=== PATIENT | female | born 1955 | race Caucasian/White ===

== ENCOUNTER 2020-08-07 12:07 | Inpatient (IN) ==
[2020-08-07] MEDS ORDERED: Bisacodyl 10 MG RECTAL SUPPOSITORY RC PRN ×2 (16:02→16:30)
[2020-08-07] MEDS ORDERED: Furosemide 20 MG TABLET PO PRN (16:07)
[2020-08-07] MEDS ORDERED: Saline Nasal Spray 44 ML BOTTLE NS PRN (16:30)
[2020-08-07] MEDS ORDERED: Ondansetron ODT 4 MG TAB.RAPDIS SL PRN (16:30)
[2020-08-07] MEDS ORDERED: D5% in Water 1,000 ML IVC PRN (16:42)
[2020-08-07] MEDS ORDERED: Dextrose Gel 15 GM/37.5 ML TUBE PO PRN ×2 (16:42)
[2020-08-07] MEDS ORDERED: *HR* Dextrose 50 % in Water (Vial) 50 ML VIAL IVP PRN (16:42)
[2020-08-07] MEDS: Insulin LISPRO 300 UNITS/3 ML VIAL SQ SCH ×2 (18:01→20:36)
[2020-08-07] MEDS: Ipratropium 1 PUFF INHALER IH SCH ×2 (19:34→23:02)
[2020-08-07] MEDS: Benzonatate 100 MG CAPSULE PO PRN (19:59)
[2020-08-07] MEDS ORDERED: Ipratropium 1 PUFF INHALER IH SCH (20:00)
[2020-08-07] MEDS: Lactobacillus 1 EACH CAP.SPRINK PO SCH (20:30)
[2020-08-07] MEDS: Sennosides/Docusate Sodium TABLET PO SCH (20:31)
[2020-08-07] MEDS: GuaiFENesin/Dextromethorphan TABLET PO SCH (20:31)
[2020-08-07] MEDS: Artificial Tears SOLN 15 ML BOTTLE BOTH EYES SCH (20:39)
[2020-08-07] MEDS: Fluticasone Propionate Nasal 50 MCG/SPRAY BOTTLE NS SCH (20:42)
[2020-08-07] MEDS ORDERED: Artificial Tears SOLN 15 ML BOTTLE BOTH EYES SCH (21:00)
[2020-08-07] MEDS ORDERED: Lactobacillus 1 EACH CAP.SPRINK PO SCH (21:00)
[2020-08-07] MEDS: Menthol 9.1 MG LOZENGE PO PRN (23:54)
[2020-08-08] MEDS: Ipratropium 1 PUFF INHALER IH SCH ×3 (03:22→11:44)
[2020-08-08] MEDS: *HR* Enoxaparin 40 MG/0.4 ML SYRINGE SQ SCH (05:20)
[2020-08-08 05:22] LABS: Basophils % 0.2 %; Eosinophils # 0.4 K/mcL (0.0-0.6); Eosinophils % 3.8 %; Hematocrit 34.4 % (35.3-44.9); Hemoglobin 10.9 g/dL (11.5-15.4); Immature Granulocytes % 2.3 % (0-4); Lymphocytes # 1.8 K/mcL (0.6-4.6); Lymphocytes % 19.2 %; Mean Corpuscular HGB Conc 31.7 g/dL (31.6-35.5); Mean Corpuscular Hemoglobin 29.7 pg (28.0-33.3); Mean Corpuscular Volume 93.7 fL (83.0-100.0); Mean Platelet Volume 9.8 fL (9.4-12.4); Monocytes # 0.5 K/mcL (0.0-1.3); Monocytes % 5.3 %; Neutrophils # 6.5 K/mcL (1.6-8.9); Platelet Count 180 K/mcL (140-400); Red Blood Count 3.67 M/mcL (3.82-4.97); Red Cell Distribution Width 15.8 % (11.5-14.5); Segmented Neutrophils % 69.2 %; White Blood Count 9.3 K/mcL (4.3-11.1)
[2020-08-08 05:40] LABS: Alanine Aminotransferase 22 Units/L (7-52); Albumin 3.1 g/dL (3.5-5.7); Albumin/Globulin Ratio 1.3 (1.1-2.2); Alkaline Phosphatase 50 Units/L (34-104); Aspartate Amino Transferase 14 Units/L (13-39); BUN/Creatinine Ratio 38 (6-26); Bilirubin,Total 0.7 mg/dL (0.3-1.0); Blood Urea Nitrogen 23 mg/dL (8-23); Calcium 8.5 mg/dL (8.6-10.3); Carbon Dioxide 32 mEq/L (23-29); Chloride 100 mEq/L (98-107); Globulin 2.3 g/dL (2.4-3.5); Glucose 95 mg/dL (70-105); Magnesium 2.2 mg/dL (1.6-2.6); Osmolality,Calculated 289 (280-300); Potassium 3.7 mEq/L (3.5-5.1); Sodium 138 mEq/L (136-145); Total Protein 5.4 g/dL (6.4-8.9); eGFR For African Americans > 60 (> 60); eGFR For Non-African Americans > 60 (> 60)
[2020-08-08] MEDS: Insulin LISPRO 300 UNITS/3 ML VIAL SQ SCH ×4 (07:57→22:06)
[2020-08-08] MEDS: Sennosides/Docusate Sodium TABLET PO SCH ×2 (08:23→22:05)
[2020-08-08] MEDS: Aspirin Enteric Coated 81 MG Tablet PO SCH (08:23)
[2020-08-08] MEDS: Lactobacillus 1 EACH CAP.SPRINK PO SCH ×2 (08:24→22:05)
[2020-08-08] MEDS: Benzonatate 100 MG CAPSULE PO PRN ×2 (08:24→22:06)
[2020-08-08] MEDS: Cholecalciferol (D-3) 1,000 UNIT (25MCG) TABLET PO SCH (08:24)
[2020-08-08] MEDS: GuaiFENesin/Dextromethorphan TABLET PO SCH ×2 (08:24→22:05)
[2020-08-08] MEDS: dexAMETHasone 4 MG TABLET PO SCH (08:24)
[2020-08-08] MEDS: Fluticasone Propionate Nasal 50 MCG/SPRAY BOTTLE NS SCH ×2 (08:27→22:07)
[2020-08-08] MEDS ORDERED: dexAMETHasone 4 MG TABLET PO SCH (09:00)
[2020-08-08] MEDS: Doxycycline 100 MG CAPSULE PO SCH ×2 (12:12→22:05)
[2020-08-08] MEDS: Furosemide 20 MG TABLET PO SCH ×2 (12:12→17:03)
[2020-08-08] MEDS: Artificial Tears SOLN 15 ML BOTTLE BOTH EYES SCH (22:07)
[2020-08-08] MEDS: Menthol 9.1 MG LOZENGE PO PRN (22:30)
[2020-08-09] MEDS: *HR* Enoxaparin 40 MG/0.4 ML SYRINGE SQ SCH (04:28)
[2020-08-09] MEDS: Menthol 9.1 MG LOZENGE PO PRN ×2 (04:29→23:52)
[2020-08-09 07:07] LABS: Basophils % 0.2 %; Eosinophils # 0.3 K/mcL (0.0-0.6); Eosinophils % 2.9 %; Hematocrit 35.7 % (35.3-44.9); Hemoglobin 11.3 g/dL (11.5-15.4); Immature Granulocytes % 2.3 % (0-4); Lymphocytes # 1.8 K/mcL (0.6-4.6); Lymphocytes % 19.1 %; Mean Corpuscular HGB Conc 31.7 g/dL (31.6-35.5); Mean Corpuscular Hemoglobin 30.1 pg (28.0-33.3); Mean Corpuscular Volume 94.9 fL (83.0-100.0); Mean Platelet Volume 10.3 fL (9.4-12.4); Monocytes # 0.5 K/mcL (0.0-1.3); Monocytes % 5.5 %; Neutrophils # 6.7 K/mcL (1.6-8.9); Platelet Count 168 K/mcL (140-400); Red Blood Count 3.76 M/mcL (3.82-4.97); White Blood Count 9.6 K/mcL (4.3-11.1)
[2020-08-09 07:21] LABS: BUN/Creatinine Ratio 36 (6-26); Blood Urea Nitrogen 16 mg/dL (8-23); Calcium 8.4 mg/dL (8.6-10.3); Carbon Dioxide 26 mEq/L (23-29); Chloride 105 mEq/L (98-107); Glucose 98 mg/dL (70-105); Osmolality,Calculated 289 (280-300); Potassium 3.7 mEq/L (3.5-5.1); Sodium 139 mEq/L (136-145); eGFR For African Americans > 60 (> 60); eGFR For Non-African Americans > 60 (> 60)
[2020-08-09] MEDS: Insulin LISPRO 300 UNITS/3 ML VIAL SQ SCH ×4 (07:50→20:00)
[2020-08-09] MEDS: Cholecalciferol (D-3) 1,000 UNIT (25MCG) TABLET PO SCH (09:35)
[2020-08-09] MEDS: levoFLOXacin 750 MG TABLET PO SCH (09:35)
[2020-08-09] MEDS: dexAMETHasone 4 MG TABLET PO SCH (09:36)
[2020-08-09] MEDS: Benzonatate 100 MG CAPSULE PO PRN ×2 (09:36→22:43)
[2020-08-09] MEDS: Aspirin Enteric Coated 81 MG Tablet PO SCH (09:37)
[2020-08-09] MEDS: GuaiFENesin/Dextromethorphan TABLET PO SCH ×2 (09:37→20:00)
[2020-08-09] MEDS: Fluticasone Propionate Nasal 50 MCG/SPRAY BOTTLE NS SCH ×2 (09:37→20:00)
[2020-08-09] MEDS: Lactobacillus 1 EACH CAP.SPRINK PO SCH ×2 (09:37→20:00)
[2020-08-09] MEDS: Sennosides/Docusate Sodium TABLET PO SCH ×2 (09:37→20:00)
[2020-08-09] MEDS: Furosemide 20 MG TABLET PO SCH ×2 (09:37→17:28)
[2020-08-09] MEDS: Acetylcysteine 10% 2 ML INHSOL IH SCH ×4 (13:46→21:57)
[2020-08-09] MEDS: Ipratropium 1 PUFF INHALER IH SCH (13:51)
[2020-08-09] MEDS: predniSONE 20 MG TABLET PO SCH (17:28)
[2020-08-09] MEDS: Ipratropium/Albuterol Neb 3 ML IH SCH ×2 (17:48→21:57)
[2020-08-09] MEDS: Artificial Tears SOLN 15 ML BOTTLE BOTH EYES SCH (20:00)
[2020-08-09] MEDS: Ciprofloxacin/Dex *EAR* Susp 7.5 ML BOTTLE LEFT EAR SCH (23:18)
[2020-08-10] MEDS: Ipratropium/Albuterol Neb 3 ML IH SCH ×4 (03:13→22:35)
[2020-08-10] MEDS: Acetylcysteine 10% 2 ML INHSOL IH SCH ×4 (03:14→22:35)
[2020-08-10] MEDS: *HR* Enoxaparin 40 MG/0.4 ML SYRINGE SQ SCH (05:00)
[2020-08-10] MEDS: levoFLOXacin 750 MG TABLET PO SCH (08:25)
[2020-08-10] MEDS: Furosemide 20 MG TABLET PO SCH ×2 (08:25→17:00)
[2020-08-10] MEDS: Cholecalciferol (D-3) 1,000 UNIT (25MCG) TABLET PO SCH (08:25)
[2020-08-10] MEDS: GuaiFENesin/Dextromethorphan TABLET PO SCH ×2 (08:25→21:15)
[2020-08-10] MEDS: Aspirin Enteric Coated 81 MG Tablet PO SCH (08:25)
[2020-08-10] MEDS: predniSONE 20 MG TABLET PO SCH ×2 (08:25→17:00)
[2020-08-10] MEDS: Fluticasone Propionate Nasal 50 MCG/SPRAY BOTTLE NS SCH ×2 (08:26→21:29)
[2020-08-10] MEDS: Insulin LISPRO 300 UNITS/3 ML VIAL SQ SCH ×4 (08:26→21:21)
[2020-08-10] MEDS: Sennosides/Docusate Sodium TABLET PO SCH ×2 (08:26→21:15)
[2020-08-10] MEDS: Lactobacillus 1 EACH CAP.SPRINK PO SCH ×2 (08:26→21:16)
[2020-08-10] MEDS: Ciprofloxacin/Dex *EAR* Susp 7.5 ML BOTTLE LEFT EAR SCH ×2 (09:25→21:23)
[2020-08-10 12:58] LABS: Adenovirus Not Detected (Not Detect); Bordetella Pertussis Not Detected (Not Detect); Chlamydophila pneumoniae Not Detected (Not Detect); Coronavirus 229E Not Detected (Not Detect); Coronavirus HKU1 Not Detected (Not Detect); Coronavirus NL63 Not Detected (Not Detect); Coronavirus OC43 Not Detected (Not Detect); Human Metapneumovirus Not Detected (Not Detect); Human Rhinovirus/Enterovirus Not Detected (Not Detect); Influenza A Subtype 2009 H1 Not Detected (Not Detect); Influenza B Not Detected (Not Detect); Mycoplasma pneumoniae Not Detected (Not Detect); Parainfluenza Virus 1 Not Detected (Not Detect); Parainfluenza Virus 2 Not Detected (Not Detect); Parainfluenza Virus 3 Not Detected (Not Detect); Parainfluenza Virus 4 Not Detected (Not Detect); Respiratory Syncytial Virus Not Detected (Not Detect); SARS-CoV-2 Not Detected (Not Detect)
[2020-08-10] MEDS: Benzonatate 100 MG CAPSULE PO PRN (21:17)
[2020-08-10] MEDS: Artificial Tears SOLN 15 ML BOTTLE BOTH EYES SCH (21:19)
[2020-08-10] MEDS: Menthol 9.1 MG LOZENGE PO PRN (21:29)
[2020-08-11] MEDS: Ipratropium/Albuterol Neb 3 ML IH SCH ×4 (04:20→21:57)
[2020-08-11] MEDS: Acetylcysteine 10% 2 ML INHSOL IH SCH ×4 (04:20→21:57)
[2020-08-11] MEDS: *HR* Enoxaparin 40 MG/0.4 ML SYRINGE SQ SCH (05:21)
[2020-08-11] MEDS: Menthol 9.1 MG LOZENGE PO PRN (05:22)
[2020-08-11] MEDS: Benzonatate 100 MG CAPSULE PO PRN (05:24)
[2020-08-11] MEDS ORDERED: Mag Hydrox/Al Hydrox/Simeth 30 ML UDC PO PRN (07:54)
[2020-08-11] MEDS ORDERED: Famotidine 20 MG TABLET PO STA (07:54)
[2020-08-11 08:15] LABS: Hematocrit 34.7 % (35.3-44.9); Hemoglobin 11.1 g/dL (11.5-15.4); Mean Corpuscular Hemoglobin 30.2 pg (28.0-33.3); Mean Corpuscular Volume 94.6 fL (83.0-100.0); Platelet Count 187 K/mcL (140-400); Red Blood Count 3.67 M/mcL (3.82-4.97); Red Cell Distribution Width 16.7 % (11.5-14.5); White Blood Count 12.1 K/mcL (4.3-11.1)
[2020-08-11] MEDS: Sennosides/Docusate Sodium TABLET PO SCH ×2 (08:45→21:30)
[2020-08-11] MEDS: levoFLOXacin 750 MG TABLET PO SCH (08:45)
[2020-08-11] MEDS: Furosemide 20 MG TABLET PO SCH ×2 (08:45→16:40)
[2020-08-11] MEDS: predniSONE 20 MG TABLET PO SCH ×2 (08:45→16:40)
[2020-08-11] MEDS: Aspirin Enteric Coated 81 MG Tablet PO SCH (08:45)
[2020-08-11] MEDS: Lactobacillus 1 EACH CAP.SPRINK PO SCH ×2 (08:45→21:29)
[2020-08-11] MEDS: Cholecalciferol (D-3) 1,000 UNIT (25MCG) TABLET PO SCH (08:45)
[2020-08-11] MEDS: GuaiFENesin/Dextromethorphan TABLET PO SCH ×2 (08:45→21:29)
[2020-08-11 08:51] LABS: Alanine Aminotransferase 22 Units/L (7-52); Albumin 3.4 g/dL (3.5-5.7); Albumin/Globulin Ratio 1.4 (1.1-2.2); Alkaline Phosphatase 55 Units/L (34-104); Aspartate Amino Transferase 11 Units/L (13-39); BUN/Creatinine Ratio 38 (6-26); Bilirubin,Total 0.5 mg/dL (0.3-1.0); Blood Urea Nitrogen 22 mg/dL (8-23); Calcium 9.1 mg/dL (8.6-10.3); Carbon Dioxide 31 mEq/L (23-29); Chloride 98 mEq/L (98-107); Globulin 2.4 g/dL (2.4-3.5); Glucose 147 mg/dL (70-105); Osmolality,Calculated 288 (280-300); Sodium 136 mEq/L (136-145); Total Protein 5.8 g/dL (6.4-8.9); eGFR For African Americans > 60 (> 60); eGFR For Non-African Americans > 60 (> 60)
[2020-08-11] MEDS: Ciprofloxacin/Dex *EAR* Susp 7.5 ML BOTTLE LEFT EAR SCH ×2 (08:51→21:39)
[2020-08-11] MEDS: Fluticasone Propionate Nasal 50 MCG/SPRAY BOTTLE NS SCH ×2 (08:52→21:42)
[2020-08-11] MEDS: Insulin LISPRO 300 UNITS/3 ML VIAL SQ SCH ×4 (08:55→21:44)
[2020-08-11] MEDS: Artificial Tears SOLN 15 ML BOTTLE BOTH EYES SCH (21:38)
[2020-08-12] MEDS: Menthol 9.1 MG LOZENGE PO PRN ×3 (01:28→21:39)
[2020-08-12] MEDS: Ipratropium/Albuterol Neb 3 ML IH SCH ×4 (04:01→22:22)
[2020-08-12] MEDS: *HR* Enoxaparin 40 MG/0.4 ML SYRINGE SQ SCH (05:42)
[2020-08-12] MEDS: Lactobacillus 1 EACH CAP.SPRINK PO SCH ×2 (07:56→21:39)
[2020-08-12] MEDS: Cholecalciferol (D-3) 1,000 UNIT (25MCG) TABLET PO SCH (07:56)
[2020-08-12] MEDS: Aspirin Enteric Coated 81 MG Tablet PO SCH (07:56)
[2020-08-12] MEDS: Furosemide 20 MG TABLET PO SCH ×2 (07:56→17:11)
[2020-08-12] MEDS: GuaiFENesin/Dextromethorphan TABLET PO SCH ×2 (07:56→21:39)
[2020-08-12] MEDS: Sennosides/Docusate Sodium TABLET PO SCH ×2 (07:56→21:39)
[2020-08-12] MEDS: levoFLOXacin 750 MG TABLET PO SCH (07:56)
[2020-08-12] MEDS: predniSONE 20 MG TABLET PO SCH ×2 (07:56→17:11)
[2020-08-12] MEDS: Fluticasone Propionate Nasal 50 MCG/SPRAY BOTTLE NS SCH ×2 (07:57→21:40)
[2020-08-12] MEDS: Insulin LISPRO 300 UNITS/3 ML VIAL SQ SCH ×4 (07:58→21:37)
[2020-08-12] MEDS: Ciprofloxacin/Dex *EAR* Susp 7.5 ML BOTTLE LEFT EAR SCH ×2 (07:58→21:41)
[2020-08-12] MEDS: Acetylcysteine 10% 2 ML INHSOL IH SCH ×2 (11:06→22:22)
[2020-08-12] MEDS: Artificial Tears SOLN 15 ML BOTTLE BOTH EYES SCH (21:39)
[2020-08-12] MEDS: Benzonatate 100 MG CAPSULE PO PRN (22:47)
[2020-08-13] MEDS: Ipratropium/Albuterol Neb 3 ML IH SCH ×4 (04:14→22:08)
[2020-08-13] MEDS: *HR* Enoxaparin 40 MG/0.4 ML SYRINGE SQ SCH (04:15)
[2020-08-13 06:11] LABS: Basophils % 0.2 %; Hemoglobin 11.4 g/dL (11.5-15.4); Immature Granulocytes % 4.2 % (0-4); Lymphocytes # 1.3 K/mcL (0.6-4.6); Mean Corpuscular HGB Conc 31.7 g/dL (31.6-35.5); Mean Corpuscular Hemoglobin 30.2 pg (28.0-33.3); Mean Corpuscular Volume 95.2 fL (83.0-100.0); Mean Platelet Volume 10.2 fL (9.4-12.4); Monocytes # 0.6 K/mcL (0.0-1.3); Monocytes % 6.1 %; Neutrophils # 7.2 K/mcL (1.6-8.9); Nucleated Red Blood Cells 0.4 /100 WBC (0); Platelet Count 204 K/mcL (140-400); Red Blood Count 3.78 M/mcL (3.82-4.97); Red Cell Distribution Width 16.7 % (11.5-14.5); Segmented Neutrophils % 75.5 %; White Blood Count 9.5 K/mcL (4.3-11.1)
[2020-08-13 06:29] LABS: BUN/Creatinine Ratio 42 (6-26); Blood Urea Nitrogen 25 mg/dL (8-23); Calcium 9.1 mg/dL (8.6-10.3); Carbon Dioxide 33 mEq/L (23-29); Chloride 98 mEq/L (98-107); Glucose 173 mg/dL (70-105); Osmolality,Calculated 295 (280-300); Potassium 4.5 mEq/L (3.5-5.1); Sodium 138 mEq/L (136-145); eGFR For African Americans > 60 (> 60); eGFR For Non-African Americans > 60 (> 60)
[2020-08-13] MEDS: Acetylcysteine 10% 2 ML INHSOL IH SCH (07:31)
[2020-08-13] MEDS: Aspirin Enteric Coated 81 MG Tablet PO SCH (08:16)
[2020-08-13] MEDS: GuaiFENesin/Dextromethorphan TABLET PO SCH ×2 (08:16→20:26)
[2020-08-13] MEDS: Insulin LISPRO 300 UNITS/3 ML VIAL SQ SCH ×4 (08:16→20:24)
[2020-08-13] MEDS: Ciprofloxacin/Dex *EAR* Susp 7.5 ML BOTTLE LEFT EAR SCH ×2 (08:16→20:28)
[2020-08-13] MEDS: Sennosides/Docusate Sodium TABLET PO SCH ×2 (08:17→20:26)
[2020-08-13] MEDS: predniSONE 20 MG TABLET PO SCH (08:17)
[2020-08-13] MEDS: Furosemide 20 MG TABLET PO SCH ×2 (08:17→16:59)
[2020-08-13] MEDS: Fluticasone Propionate Nasal 50 MCG/SPRAY BOTTLE NS SCH ×2 (08:17→20:26)
[2020-08-13] MEDS: Cholecalciferol (D-3) 1,000 UNIT (25MCG) TABLET PO SCH (08:17)
[2020-08-13] MEDS: levoFLOXacin 750 MG TABLET PO SCH (08:17)
[2020-08-13] MEDS: Lactobacillus 1 EACH CAP.SPRINK PO SCH ×2 (08:17→20:25)
[2020-08-13] MEDS: Menthol 9.1 MG LOZENGE PO PRN ×2 (08:44→20:26)
[2020-08-13] MEDS: Benzonatate 100 MG CAPSULE PO PRN ×2 (08:44→20:26)
[2020-08-13] MEDS ORDERED: Acetylcysteine 10% 2 ML INHSOL IH PRN (09:24)
[2020-08-13] MEDS: Artificial Tears SOLN 15 ML BOTTLE BOTH EYES SCH (20:27)
[2020-08-14] MEDS: Ipratropium/Albuterol Neb 3 ML IH SCH ×4 (03:52→19:38)
[2020-08-14] MEDS: *HR* Enoxaparin 40 MG/0.4 ML SYRINGE SQ SCH (04:00)
[2020-08-14] MEDS: Insulin LISPRO 300 UNITS/3 ML VIAL SQ SCH ×4 (08:43→21:27)
[2020-08-14] MEDS: Ciprofloxacin/Dex *EAR* Susp 7.5 ML BOTTLE LEFT EAR SCH ×2 (08:46→21:26)
[2020-08-14] MEDS: Sennosides/Docusate Sodium TABLET PO SCH ×2 (08:47→21:19)
[2020-08-14] MEDS: Lactobacillus 1 EACH CAP.SPRINK PO SCH ×2 (08:47→21:19)
[2020-08-14] MEDS: Cholecalciferol (D-3) 1,000 UNIT (25MCG) TABLET PO SCH (08:47)
[2020-08-14] MEDS: Aspirin Enteric Coated 81 MG Tablet PO SCH (08:47)
[2020-08-14] MEDS: GuaiFENesin/Dextromethorphan TABLET PO SCH ×2 (08:47→21:19)
[2020-08-14] MEDS: predniSONE 20 MG TABLET PO SCH (08:47)
[2020-08-14] MEDS: Fluticasone Propionate Nasal 50 MCG/SPRAY BOTTLE NS SCH ×2 (08:47→21:20)
[2020-08-14] MEDS: Furosemide 20 MG TABLET PO SCH ×2 (08:47→16:50)
[2020-08-14] MEDS: levoFLOXacin 750 MG TABLET PO SCH (08:47)
[2020-08-14] MEDS: Nystatin SUSP 5 ML UD.LIQ PO SCH ×2 (16:50→21:19)
[2020-08-14] MEDS: Benzonatate 100 MG CAPSULE PO PRN (21:19)
[2020-08-14] MEDS: Artificial Tears SOLN 15 ML BOTTLE BOTH EYES SCH (21:20)
[2020-08-15] MEDS: Ipratropium/Albuterol Neb 3 ML IH SCH ×4 (04:03→20:34)
[2020-08-15] MEDS: *HR* Enoxaparin 40 MG/0.4 ML SYRINGE SQ SCH (04:06)
[2020-08-15] MEDS: Nystatin SUSP 5 ML UD.LIQ PO SCH ×4 (08:22→21:25)
[2020-08-15] MEDS: Insulin LISPRO 300 UNITS/3 ML VIAL SQ SCH ×4 (08:22→21:25)
[2020-08-15] MEDS: predniSONE 20 MG TABLET PO SCH (08:23)
[2020-08-15] MEDS: Lactobacillus 1 EACH CAP.SPRINK PO SCH ×2 (08:23→21:25)
[2020-08-15] MEDS: GuaiFENesin/Dextromethorphan TABLET PO SCH ×2 (08:23→21:25)
[2020-08-15] MEDS: Furosemide 20 MG TABLET PO SCH ×2 (08:23→17:06)
[2020-08-15] MEDS: Sennosides/Docusate Sodium TABLET PO SCH ×2 (08:23→21:25)
[2020-08-15] MEDS: Aspirin Enteric Coated 81 MG Tablet PO SCH (08:23)
[2020-08-15] MEDS: Cholecalciferol (D-3) 1,000 UNIT (25MCG) TABLET PO SCH (08:23)
[2020-08-15] MEDS: levoFLOXacin 750 MG TABLET PO SCH (08:23)
[2020-08-15] MEDS: Fluticasone Propionate Nasal 50 MCG/SPRAY BOTTLE NS SCH ×2 (14:04→21:26)
[2020-08-15] MEDS: Artificial Tears SOLN 15 ML BOTTLE BOTH EYES SCH (21:25)
[2020-08-15] MEDS: polyethylene glycoL 3350 17 GM POWD.PACK PO PRN (21:25)
[2020-08-15] MEDS: Benzonatate 100 MG CAPSULE PO PRN (21:26)
[2020-08-16] MEDS: Ipratropium/Albuterol Neb 3 ML IH SCH ×4 (04:27→21:27)
[2020-08-16] MEDS: *HR* Enoxaparin 40 MG/0.4 ML SYRINGE SQ SCH (05:53)
[2020-08-16] MEDS: Lactobacillus 1 EACH CAP.SPRINK PO SCH ×2 (08:22→19:46)
[2020-08-16] MEDS: Sennosides/Docusate Sodium TABLET PO SCH ×2 (08:22→19:46)
[2020-08-16] MEDS: Cholecalciferol (D-3) 1,000 UNIT (25MCG) TABLET PO SCH (08:22)
[2020-08-16] MEDS: predniSONE 20 MG TABLET PO SCH (08:22)
[2020-08-16] MEDS: levoFLOXacin 750 MG TABLET PO SCH (08:22)
[2020-08-16] MEDS: Aspirin Enteric Coated 81 MG Tablet PO SCH (08:22)
[2020-08-16] MEDS: Furosemide 20 MG TABLET PO SCH ×2 (08:22→17:56)
[2020-08-16] MEDS: Nystatin SUSP 5 ML UD.LIQ PO SCH ×4 (08:22→19:47)
[2020-08-16] MEDS: GuaiFENesin/Dextromethorphan TABLET PO SCH ×2 (08:22→19:46)
[2020-08-16] MEDS: Insulin LISPRO 300 UNITS/3 ML VIAL SQ SCH ×4 (08:25→20:13)
[2020-08-16] MEDS: Fluticasone Propionate Nasal 50 MCG/SPRAY BOTTLE NS SCH ×2 (08:25→20:11)
[2020-08-16] MEDS: polyethylene glycoL 3350 17 GM POWD.PACK PO PRN (14:02)
[2020-08-16] MEDS: Artificial Tears SOLN 15 ML BOTTLE BOTH EYES SCH (20:12)
[2020-08-16] MEDS: Benzonatate 100 MG CAPSULE PO PRN (21:19)
[2020-08-17] MEDS: Ipratropium/Albuterol Neb 3 ML IH SCH ×4 (03:53→21:55)
[2020-08-17] MEDS: *HR* Enoxaparin 40 MG/0.4 ML SYRINGE SQ SCH (06:17)
[2020-08-17] MEDS: Cholecalciferol (D-3) 1,000 UNIT (25MCG) TABLET PO SCH (08:02)
[2020-08-17] MEDS: Lactobacillus 1 EACH CAP.SPRINK PO SCH ×2 (08:02→21:31)
[2020-08-17] MEDS: Aspirin Enteric Coated 81 MG Tablet PO SCH (08:02)
[2020-08-17] MEDS: GuaiFENesin/Dextromethorphan TABLET PO SCH ×2 (08:02→21:31)
[2020-08-17] MEDS: predniSONE 20 MG TABLET PO SCH (08:02)
[2020-08-17] MEDS: Nystatin SUSP 5 ML UD.LIQ PO SCH ×4 (08:02→21:31)
[2020-08-17] MEDS: Insulin LISPRO 300 UNITS/3 ML VIAL SQ SCH ×4 (08:02→21:35)
[2020-08-17] MEDS: Sennosides/Docusate Sodium TABLET PO SCH ×2 (08:03→21:31)
[2020-08-17] MEDS: Furosemide 20 MG TABLET PO SCH ×2 (08:03→18:05)
[2020-08-17] MEDS: Fluticasone Propionate Nasal 50 MCG/SPRAY BOTTLE NS SCH ×2 (08:03→21:36)
[2020-08-17] MEDS ORDERED: MOM Conc 10 ML UD.LIQ PO PRN (16:34)
[2020-08-17] MEDS: Benzonatate 100 MG CAPSULE PO PRN (21:31)
[2020-08-17] MEDS: Artificial Tears SOLN 15 ML BOTTLE BOTH EYES SCH (21:36)
[2020-08-18] MEDS: Ipratropium/Albuterol Neb 3 ML IH SCH ×4 (04:07→21:55)
[2020-08-18] MEDS: *HR* Enoxaparin 40 MG/0.4 ML SYRINGE SQ SCH (05:28)
[2020-08-18 06:26] LABS: Basophils % 0.3 %; Eosinophils # 0.1 K/mcL (0.0-0.6); Eosinophils % 1.3 %; Hematocrit 33.2 % (35.3-44.9); Hemoglobin 10.6 g/dL (11.5-15.4); Immature Granulocytes % 5.6 % (0-4); Lymphocytes # 2.1 K/mcL (0.6-4.6); Lymphocytes % 25.9 %; Mean Corpuscular HGB Conc 31.9 g/dL (31.6-35.5); Mean Corpuscular Hemoglobin 30.1 pg (28.0-33.3); Mean Corpuscular Volume 94.3 fL (83.0-100.0); Mean Platelet Volume 9.7 fL (9.4-12.4); Monocytes # 0.6 K/mcL (0.0-1.3); Monocytes % 7.7 %; Neutrophils # 4.7 K/mcL (1.6-8.9); Platelet Count 256 K/mcL (140-400); Red Blood Count 3.52 M/mcL (3.82-4.97); Red Cell Distribution Width 17.3 % (11.5-14.5); Segmented Neutrophils % 59.2 %; White Blood Count 7.9 K/mcL (4.3-11.1)
[2020-08-18 06:48] LABS: BUN/Creatinine Ratio 46 (6-26); Blood Urea Nitrogen 26 mg/dL (8-23); Calcium 8.3 mg/dL (8.6-10.3); Carbon Dioxide 33 mEq/L (23-29); Chloride 99 mEq/L (98-107); Glucose 90 mg/dL (70-105); Osmolality,Calculated 292 (280-300); Potassium 3.1 mEq/L (3.5-5.1); Sodium 139 mEq/L (136-145); eGFR For African Americans > 60 (> 60); eGFR For Non-African Americans > 60 (> 60)
[2020-08-18] MEDS: Insulin LISPRO 300 UNITS/3 ML VIAL SQ SCH ×4 (07:45→21:20)
[2020-08-18] MEDS: Nystatin SUSP 5 ML UD.LIQ PO SCH ×4 (08:38→21:19)
[2020-08-18] MEDS: Fluticasone Propionate Nasal 50 MCG/SPRAY BOTTLE NS SCH ×2 (08:38→21:18)
[2020-08-18] MEDS: GuaiFENesin/Dextromethorphan TABLET PO SCH ×2 (08:38→21:15)
[2020-08-18] MEDS: Aspirin Enteric Coated 81 MG Tablet PO SCH (08:39)
[2020-08-18] MEDS: Lactobacillus 1 EACH CAP.SPRINK PO SCH ×2 (08:39→21:14)
[2020-08-18] MEDS: Sennosides/Docusate Sodium TABLET PO SCH ×2 (08:39→21:17)
[2020-08-18] MEDS: Cholecalciferol (D-3) 1,000 UNIT (25MCG) TABLET PO SCH (08:39)
[2020-08-18] MEDS: predniSONE 20 MG TABLET PO SCH (08:39)
[2020-08-18] MEDS: Furosemide 20 MG TABLET PO SCH ×2 (08:39→17:00)
[2020-08-18] MEDS: Menthol 9.1 MG LOZENGE PO PRN (12:16)
[2020-08-18] MEDS: Artificial Tears SOLN 15 ML BOTTLE BOTH EYES SCH (21:18)
[2020-08-19] MEDS: Ipratropium/Albuterol Neb 3 ML IH SCH ×4 (03:40→21:51)
[2020-08-19] MEDS: *HR* Enoxaparin 40 MG/0.4 ML SYRINGE SQ SCH (05:19)
[2020-08-19 05:24] LABS: Basophils % 0.3 %; Eosinophils # 0.1 K/mcL (0.0-0.6); Eosinophils % 0.8 %; Hematocrit 35.1 % (35.3-44.9); Hemoglobin 11.2 g/dL (11.5-15.4); Immature Granulocytes % 5.9 % (0-4); Lymphocytes # 2.2 K/mcL (0.6-4.6); Lymphocytes % 24.1 %; Mean Corpuscular HGB Conc 31.9 g/dL (31.6-35.5); Mean Corpuscular Hemoglobin 30.4 pg (28.0-33.3); Mean Corpuscular Volume 95.4 fL (83.0-100.0); Mean Platelet Volume 9.7 fL (9.4-12.4); Monocytes # 0.7 K/mcL (0.0-1.3); Monocytes % 7.5 %; Neutrophils # 5.5 K/mcL (1.6-8.9); Nucleated Red Blood Cells 0.2 /100 WBC (0); Platelet Count 274 K/mcL (140-400); Red Blood Count 3.68 M/mcL (3.82-4.97); Red Cell Distribution Width 17.2 % (11.5-14.5); Segmented Neutrophils % 61.4 %
[2020-08-19] MEDS: Menthol 9.1 MG LOZENGE PO PRN (05:24)
[2020-08-19] MEDS: Benzonatate 100 MG CAPSULE PO PRN ×2 (05:25→22:30)
[2020-08-19 05:37] LABS: BUN/Creatinine Ratio 50 (6-26); Blood Urea Nitrogen 27 mg/dL (8-23); Calcium 8.8 mg/dL (8.6-10.3); Carbon Dioxide 32 mEq/L (23-29); Chloride 99 mEq/L (98-107); Glucose 111 mg/dL (70-105); Osmolality,Calculated 294 (280-300); Potassium 3.9 mEq/L (3.5-5.1); Sodium 139 mEq/L (136-145); eGFR For African Americans > 60 (> 60); eGFR For Non-African Americans > 60 (> 60)
[2020-08-19] MEDS: Furosemide 20 MG TABLET PO SCH ×2 (09:13→16:50)
[2020-08-19] MEDS: Nystatin SUSP 5 ML UD.LIQ PO SCH ×3 (09:14→20:46)
[2020-08-19] MEDS: Lactobacillus 1 EACH CAP.SPRINK PO SCH ×2 (09:14→20:45)
[2020-08-19] MEDS: predniSONE 20 MG TABLET PO SCH (09:14)
[2020-08-19] MEDS: GuaiFENesin/Dextromethorphan TABLET PO SCH ×2 (09:14→20:45)
[2020-08-19] MEDS: Aspirin Enteric Coated 81 MG Tablet PO SCH (09:14)
[2020-08-19] MEDS: Cholecalciferol (D-3) 1,000 UNIT (25MCG) TABLET PO SCH (09:14)
[2020-08-19] MEDS: Insulin LISPRO 300 UNITS/3 ML VIAL SQ SCH ×4 (09:14→20:45)
[2020-08-19] MEDS: Sennosides/Docusate Sodium TABLET PO SCH ×2 (09:14→20:46)
[2020-08-19] MEDS: Fluticasone Propionate Nasal 50 MCG/SPRAY BOTTLE NS SCH ×2 (09:21→20:46)
[2020-08-19] MEDS: Artificial Tears SOLN 15 ML BOTTLE BOTH EYES SCH (20:44)
[2020-08-20] MEDS: Ipratropium/Albuterol Neb 3 ML IH SCH ×4 (03:39→21:34)
[2020-08-20] MEDS: *HR* Enoxaparin 40 MG/0.4 ML SYRINGE SQ SCH (04:21)
[2020-08-20 05:58] LABS: Basophils # 0.1 K/mcL (0.0-0.2); Basophils % 0.6 %; Eosinophils # 0.1 K/mcL (0.0-0.6); Eosinophils % 1.1 %; Hematocrit 34.6 % (35.3-44.9); Lymphocytes # 2.4 K/mcL (0.6-4.6); Lymphocytes % 29.1 %; Mean Corpuscular HGB Conc 31.8 g/dL (31.6-35.5); Mean Corpuscular Hemoglobin 30.4 pg (28.0-33.3); Mean Corpuscular Volume 95.6 fL (83.0-100.0); Mean Platelet Volume 9.8 fL (9.4-12.4); Monocytes # 0.7 K/mcL (0.0-1.3); Monocytes % 8.4 %; Neutrophils # 4.4 K/mcL (1.6-8.9); Nucleated Red Blood Cells 0.2 /100 WBC (0); Platelet Count 265 K/mcL (140-400); Red Blood Count 3.62 M/mcL (3.82-4.97); Red Cell Distribution Width 17.3 % (11.5-14.5); Segmented Neutrophils % 54.8 %; White Blood Count 8.1 K/mcL (4.3-11.1)
[2020-08-20 06:18] LABS: BUN/Creatinine Ratio 39 (6-26); Blood Urea Nitrogen 22 mg/dL (8-23); Calcium 8.8 mg/dL (8.6-10.3); Carbon Dioxide 33 mEq/L (23-29); Chloride 100 mEq/L (98-107); Glucose 96 mg/dL (70-105); Osmolality,Calculated 293 (280-300); Potassium 4.1 mEq/L (3.5-5.1); Sodium 140 mEq/L (136-145); eGFR For African Americans > 60 (> 60); eGFR For Non-African Americans > 60 (> 60)
[2020-08-20 06:44] LABS: Platelet Estimate Normal (Normal)
[2020-08-20] MEDS: Insulin LISPRO 300 UNITS/3 ML VIAL SQ SCH ×4 (08:31→20:13)
[2020-08-20] MEDS: Cholecalciferol (D-3) 1,000 UNIT (25MCG) TABLET PO SCH (08:34)
[2020-08-20] MEDS: predniSONE 20 MG TABLET PO SCH (08:34)
[2020-08-20] MEDS: Furosemide 20 MG TABLET PO SCH ×2 (08:34→17:06)
[2020-08-20] MEDS: Sennosides/Docusate Sodium TABLET PO SCH ×2 (08:34→20:29)
[2020-08-20] MEDS: Lactobacillus 1 EACH CAP.SPRINK PO SCH ×2 (08:34→20:29)
[2020-08-20] MEDS: Nystatin SUSP 5 ML UD.LIQ PO SCH ×4 (08:34→20:28)
[2020-08-20] MEDS: GuaiFENesin/Dextromethorphan TABLET PO SCH ×2 (08:34→20:29)
[2020-08-20] MEDS: Aspirin Enteric Coated 81 MG Tablet PO SCH (08:34)
[2020-08-20] MEDS: Fluticasone Propionate Nasal 50 MCG/SPRAY BOTTLE NS SCH ×2 (08:35→20:29)
[2020-08-20] MEDS: Menthol 9.1 MG LOZENGE PO PRN ×2 (09:32→20:29)
[2020-08-20] MEDS: Artificial Tears SOLN 15 ML BOTTLE BOTH EYES SCH (20:29)
[2020-08-21] MEDS: Ipratropium/Albuterol Neb 3 ML IH SCH ×4 (03:40→19:41)
[2020-08-21] MEDS: Acetaminophen 325 MG TABLET PO PRN (03:57)
[2020-08-21] MEDS: *HR* Enoxaparin 40 MG/0.4 ML SYRINGE SQ SCH (03:57)
[2020-08-21] MEDS: Sennosides/Docusate Sodium TABLET PO SCH ×2 (08:06→19:59)
[2020-08-21] MEDS: Aspirin Enteric Coated 81 MG Tablet PO SCH (08:06)
[2020-08-21] MEDS: GuaiFENesin/Dextromethorphan TABLET PO SCH ×2 (08:06→19:58)
[2020-08-21] MEDS: Lactobacillus 1 EACH CAP.SPRINK PO SCH ×2 (08:06→19:58)
[2020-08-21] MEDS: Cholecalciferol (D-3) 1,000 UNIT (25MCG) TABLET PO SCH (08:06)
[2020-08-21] MEDS: Insulin LISPRO 300 UNITS/3 ML VIAL SQ SCH ×4 (08:07→20:05)
[2020-08-21] MEDS: Nystatin SUSP 5 ML UD.LIQ PO SCH ×3 (08:07→17:34)
[2020-08-21] MEDS: predniSONE 20 MG TABLET PO SCH (08:07)
[2020-08-21] MEDS: Furosemide 20 MG TABLET PO SCH ×2 (08:07→17:34)
[2020-08-21] MEDS: Fluticasone Propionate Nasal 50 MCG/SPRAY BOTTLE NS SCH ×2 (11:34→19:58)
[2020-08-21] MEDS: Benzonatate 100 MG CAPSULE PO PRN ×2 (12:13→18:47)
[2020-08-21] MEDS: Artificial Tears SOLN 15 ML BOTTLE BOTH EYES SCH (19:58)
[2020-08-21] MEDS: Menthol 9.1 MG LOZENGE PO PRN (19:59)
[2020-08-22] MEDS: Ipratropium/Albuterol Neb 3 ML IH SCH ×4 (04:07→19:50)
[2020-08-22] MEDS: Acetaminophen 325 MG TABLET PO PRN (04:31)
[2020-08-22] MEDS: *HR* Enoxaparin 40 MG/0.4 ML SYRINGE SQ SCH (04:31)
[2020-08-22 08:02] LABS: Basophils # 0.1 K/mcL (0.0-0.2); Basophils % 0.5 %; Eosinophils # 0.1 K/mcL (0.0-0.6); Eosinophils % 0.9 %; Immature Granulocytes % 4.5 % (0-4); Lymphocytes # 3.8 K/mcL (0.6-4.6); Lymphocytes % 28.7 %; Mean Corpuscular HGB Conc 31.6 g/dL (31.6-35.5); Mean Corpuscular Hemoglobin 29.9 pg (28.0-33.3); Mean Corpuscular Volume 94.8 fL (83.0-100.0); Mean Platelet Volume 9.6 fL (9.4-12.4); Monocytes # 0.8 K/mcL (0.0-1.3); Monocytes % 6.1 %; Neutrophils # 7.8 K/mcL (1.6-8.9); Nucleated Red Blood Cells 0.2 /100 WBC (0); Platelet Count 345 K/mcL (140-400); Red Blood Count 4.01 M/mcL (3.82-4.97); Red Cell Distribution Width 17.6 % (11.5-14.5); Segmented Neutrophils % 59.3 %; White Blood Count 13.2 K/mcL (4.3-11.1)
[2020-08-22] MEDS: Insulin LISPRO 300 UNITS/3 ML VIAL SQ SCH ×4 (08:48→21:20)
[2020-08-22] MEDS: Benzonatate 100 MG CAPSULE PO PRN ×2 (08:49→18:28)
[2020-08-22] MEDS: Lactobacillus 1 EACH CAP.SPRINK PO SCH ×2 (08:49→21:19)
[2020-08-22] MEDS: Sennosides/Docusate Sodium TABLET PO SCH ×2 (08:49→21:21)
[2020-08-22] MEDS: Aspirin Enteric Coated 81 MG Tablet PO SCH (08:49)
[2020-08-22] MEDS: Cholecalciferol (D-3) 1,000 UNIT (25MCG) TABLET PO SCH (08:49)
[2020-08-22] MEDS: predniSONE 20 MG TABLET PO SCH (08:49)
[2020-08-22] MEDS: Fluticasone Propionate Nasal 50 MCG/SPRAY BOTTLE NS SCH ×2 (08:49→21:20)
[2020-08-22] MEDS: Furosemide 20 MG TABLET PO SCH ×2 (08:49→16:33)
[2020-08-22] MEDS: GuaiFENesin/Dextromethorphan TABLET PO SCH ×2 (08:49→21:20)
[2020-08-22 10:58] LABS: Alanine Aminotransferase 27 Units/L (7-52); Albumin 3.7 g/dL (3.5-5.7); Albumin/Globulin Ratio 1.9 (1.1-2.2); Alkaline Phosphatase 45 Units/L (34-104); Aspartate Amino Transferase 16 Units/L (13-39); BUN/Creatinine Ratio 41 (6-26); Bilirubin,Total 0.7 mg/dL (0.3-1.0); Blood Urea Nitrogen 27 mg/dL (8-23); Carbon Dioxide 28 mEq/L (23-29); Chloride 101 mEq/L (98-107); Glucose 106 mg/dL (70-105); Magnesium 2.1 mg/dL (1.6-2.6); Osmolality,Calculated 294 (280-300); Sodium 139 mEq/L (136-145); Total Protein 5.7 g/dL (6.4-8.9); eGFR For African Americans > 60 (> 60); eGFR For Non-African Americans > 60 (> 60)
[2020-08-22] MEDS: Artificial Tears SOLN 15 ML BOTTLE BOTH EYES SCH (21:19)
[2020-08-23] MEDS: Ipratropium/Albuterol Neb 3 ML IH SCH ×4 (03:53→19:35)
[2020-08-23] MEDS: *HR* Enoxaparin 40 MG/0.4 ML SYRINGE SQ SCH (05:10)
[2020-08-23] MEDS: Benzonatate 100 MG CAPSULE PO PRN ×2 (05:10→21:03)
[2020-08-23] MEDS: Insulin LISPRO 300 UNITS/3 ML VIAL SQ SCH ×4 (08:11→21:02)
[2020-08-23] MEDS: Aspirin Enteric Coated 81 MG Tablet PO SCH (08:11)
[2020-08-23] MEDS: Cholecalciferol (D-3) 1,000 UNIT (25MCG) TABLET PO SCH (08:11)
[2020-08-23] MEDS: Furosemide 20 MG TABLET PO SCH ×2 (08:11→17:20)
[2020-08-23] MEDS: Lactobacillus 1 EACH CAP.SPRINK PO SCH ×2 (08:11→21:01)
[2020-08-23] MEDS: Sennosides/Docusate Sodium TABLET PO SCH ×2 (08:11→21:02)
[2020-08-23] MEDS: predniSONE 20 MG TABLET PO SCH (08:11)
[2020-08-23] MEDS: GuaiFENesin/Dextromethorphan TABLET PO SCH ×2 (08:11→21:02)
[2020-08-23] MEDS: Fluticasone Propionate Nasal 50 MCG/SPRAY BOTTLE NS SCH ×2 (08:12→21:02)
[2020-08-23] MEDS: Artificial Tears SOLN 15 ML BOTTLE BOTH EYES SCH (21:01)
[2020-08-23] MEDS: Menthol 9.1 MG LOZENGE PO PRN (21:03)
[2020-08-24] MEDS: Ipratropium/Albuterol Neb 3 ML IH SCH ×4 (05:35→22:05)
[2020-08-24] MEDS: *HR* Enoxaparin 40 MG/0.4 ML SYRINGE SQ SCH (05:35)
[2020-08-24 05:52] LABS: Hematocrit 34.4 % (35.3-44.9); Hemoglobin 10.9 g/dL (11.5-15.4); Mean Corpuscular HGB Conc 31.7 g/dL (31.6-35.5); Mean Corpuscular Hemoglobin 30.4 pg (28.0-33.3); Mean Corpuscular Volume 96.1 fL (83.0-100.0); Mean Platelet Volume 9.7 fL (9.4-12.4); Platelet Count 275 K/mcL (140-400); Red Blood Count 3.58 M/mcL (3.82-4.97); White Blood Count 10.5 K/mcL (4.3-11.1)
[2020-08-24 06:09] LABS: Alanine Aminotransferase 25 Units/L (7-52); Albumin 3.4 g/dL (3.5-5.7); Albumin/Globulin Ratio 1.9 (1.1-2.2); Alkaline Phosphatase 46 Units/L (34-104); Aspartate Amino Transferase 13 Units/L (13-39); BUN/Creatinine Ratio 38 (6-26); Bilirubin,Total 0.7 mg/dL (0.3-1.0); Blood Urea Nitrogen 24 mg/dL (8-23); Carbon Dioxide 32 mEq/L (23-29); Chloride 103 mEq/L (98-107); Globulin 1.8 g/dL (2.4-3.5); Glucose 98 mg/dL (70-105); Magnesium 2.2 mg/dL (1.6-2.6); Osmolality,Calculated 298 (280-300); Potassium 4.1 mEq/L (3.5-5.1); Sodium 142 mEq/L (136-145); Total Protein 5.2 g/dL (6.4-8.9); eGFR For African Americans > 60 (> 60); eGFR For Non-African Americans > 60 (> 60)
[2020-08-24] MEDS: Insulin LISPRO 300 UNITS/3 ML VIAL SQ SCH ×4 (08:11→21:46)
[2020-08-24] MEDS: Cholecalciferol (D-3) 1,000 UNIT (25MCG) TABLET PO SCH (08:19)
[2020-08-24] MEDS: GuaiFENesin/Dextromethorphan TABLET PO SCH ×2 (08:19→21:45)
[2020-08-24] MEDS: Sennosides/Docusate Sodium TABLET PO SCH ×2 (08:19→21:46)
[2020-08-24] MEDS: Aspirin Enteric Coated 81 MG Tablet PO SCH (08:19)
[2020-08-24] MEDS: Lactobacillus 1 EACH CAP.SPRINK PO SCH ×2 (08:19→21:46)
[2020-08-24] MEDS: predniSONE 20 MG TABLET PO SCH (08:19)
[2020-08-24] MEDS: Furosemide 20 MG TABLET PO SCH ×2 (08:19→17:43)
[2020-08-24] MEDS: Fluticasone Propionate Nasal 50 MCG/SPRAY BOTTLE NS SCH ×2 (08:20→21:47)
[2020-08-24] MEDS: Benzonatate 100 MG CAPSULE PO PRN ×2 (08:25→21:46)
[2020-08-24] MEDS: Menthol 9.1 MG LOZENGE PO PRN ×2 (08:27→21:47)
[2020-08-24] MEDS: Nystatin SUSP 5 ML UD.LIQ PO SCH (21:46)
[2020-08-24] MEDS: Artificial Tears SOLN 15 ML BOTTLE BOTH EYES SCH (21:47)
[2020-08-25] MEDS: Ipratropium/Albuterol Neb 3 ML IH SCH ×4 (03:55→22:12)
[2020-08-25] MEDS: *HR* Enoxaparin 40 MG/0.4 ML SYRINGE SQ SCH (06:17)
[2020-08-25] MEDS: Nystatin SUSP 5 ML UD.LIQ PO SCH ×4 (08:19→19:26)
[2020-08-25] MEDS: Aspirin Enteric Coated 81 MG Tablet PO SCH (08:19)
[2020-08-25] MEDS: Lactobacillus 1 EACH CAP.SPRINK PO SCH ×2 (08:20→19:26)
[2020-08-25] MEDS: GuaiFENesin/Dextromethorphan TABLET PO SCH ×2 (08:20→19:26)
[2020-08-25] MEDS: Insulin LISPRO 300 UNITS/3 ML VIAL SQ SCH ×4 (08:20→19:33)
[2020-08-25] MEDS: Fluticasone Propionate Nasal 50 MCG/SPRAY BOTTLE NS SCH ×2 (08:20→19:27)
[2020-08-25] MEDS: Cholecalciferol (D-3) 1,000 UNIT (25MCG) TABLET PO SCH (08:20)
[2020-08-25] MEDS: Sennosides/Docusate Sodium TABLET PO SCH ×2 (08:20→19:26)
[2020-08-25] MEDS: predniSONE 20 MG TABLET PO SCH (08:20)
[2020-08-25] MEDS: Furosemide 20 MG TABLET PO SCH ×2 (08:20→16:32)
[2020-08-25] MEDS ORDERED: Fluconazole 150 MG TABLET PO ONE (10:37)
[2020-08-25] MEDS ORDERED: Ipratropium/Albuterol Neb 3 ML IH SCH ×2 (18:00→20:00)
[2020-08-25] MEDS: Benzonatate 100 MG CAPSULE PO PRN (19:26)
[2020-08-25] MEDS: Artificial Tears SOLN 15 ML BOTTLE BOTH EYES SCH (19:27)
[2020-08-26] MEDS: Ipratropium/Albuterol Neb 3 ML IH SCH ×4 (04:06→22:20)
[2020-08-26] MEDS: *HR* Enoxaparin 40 MG/0.4 ML SYRINGE SQ SCH (05:30)
[2020-08-26] MEDS: Insulin LISPRO 300 UNITS/3 ML VIAL SQ SCH ×4 (07:36→20:00)
[2020-08-26] MEDS: Fluticasone Propionate Nasal 50 MCG/SPRAY BOTTLE NS SCH ×2 (08:35→20:00)
[2020-08-26] MEDS: Cholecalciferol (D-3) 1,000 UNIT (25MCG) TABLET PO SCH (08:36)
[2020-08-26] MEDS: Lactobacillus 1 EACH CAP.SPRINK PO SCH ×2 (08:36→19:59)
[2020-08-26] MEDS: predniSONE 20 MG TABLET PO SCH (08:36)
[2020-08-26] MEDS: Aspirin Enteric Coated 81 MG Tablet PO SCH (08:36)
[2020-08-26] MEDS: GuaiFENesin/Dextromethorphan TABLET PO SCH ×2 (08:36→19:58)
[2020-08-26] MEDS: Furosemide 20 MG TABLET PO SCH (08:36)
[2020-08-26] MEDS: Nystatin SUSP 5 ML UD.LIQ PO SCH ×4 (08:36→19:58)
[2020-08-26] MEDS: Sennosides/Docusate Sodium TABLET PO SCH ×2 (08:36→19:58)
[2020-08-26] MEDS: Benzonatate 100 MG CAPSULE PO PRN ×2 (08:39→19:57)
[2020-08-26] MEDS: Menthol 9.1 MG LOZENGE PO PRN (19:59)
[2020-08-26] MEDS: Artificial Tears SOLN 15 ML BOTTLE BOTH EYES SCH (20:00)
[2020-08-27] MEDS: *HR* Enoxaparin 40 MG/0.4 ML SYRINGE SQ SCH (04:00)
[2020-08-27] MEDS: Ipratropium/Albuterol Neb 3 ML IH SCH ×4 (04:30→22:07)
[2020-08-27] MEDS: Cholecalciferol (D-3) 1,000 UNIT (25MCG) TABLET PO SCH (08:33)
[2020-08-27] MEDS: Lactobacillus 1 EACH CAP.SPRINK PO SCH ×2 (08:33→21:42)
[2020-08-27] MEDS: Sennosides/Docusate Sodium TABLET PO SCH ×2 (08:33→21:41)
[2020-08-27] MEDS: Nystatin SUSP 5 ML UD.LIQ PO SCH ×4 (08:33→21:41)
[2020-08-27] MEDS: Aspirin Enteric Coated 81 MG Tablet PO SCH (08:33)
[2020-08-27] MEDS: GuaiFENesin/Dextromethorphan TABLET PO SCH ×2 (08:33→21:42)
[2020-08-27] MEDS: Insulin LISPRO 300 UNITS/3 ML VIAL SQ SCH ×4 (08:33→21:42)
[2020-08-27] MEDS: Fluticasone Propionate Nasal 50 MCG/SPRAY BOTTLE NS SCH ×2 (08:35→21:41)
[2020-08-27] MEDS: predniSONE 20 MG TABLET PO SCH (08:35)
[2020-08-27] MEDS: Benzonatate 100 MG CAPSULE PO PRN ×2 (09:42→17:24)
[2020-08-27] MEDS: Artificial Tears SOLN 15 ML BOTTLE BOTH EYES SCH (21:41)
[2020-08-28] MEDS: Ipratropium/Albuterol Neb 3 ML IH SCH ×4 (03:54→20:48)
[2020-08-28] MEDS: *HR* Enoxaparin 40 MG/0.4 ML SYRINGE SQ SCH (04:05)
[2020-08-28] MEDS: Lactobacillus 1 EACH CAP.SPRINK PO SCH ×2 (08:18→20:17)
[2020-08-28] MEDS: Aspirin Enteric Coated 81 MG Tablet PO SCH (08:18)
[2020-08-28] MEDS: Insulin LISPRO 300 UNITS/3 ML VIAL SQ SCH ×4 (08:18→20:21)
[2020-08-28] MEDS: Cholecalciferol (D-3) 1,000 UNIT (25MCG) TABLET PO SCH (08:19)
[2020-08-28] MEDS: predniSONE 20 MG TABLET PO SCH (08:19)
[2020-08-28] MEDS: GuaiFENesin/Dextromethorphan TABLET PO SCH ×2 (08:19→20:17)
[2020-08-28] MEDS: Sennosides/Docusate Sodium TABLET PO SCH ×2 (08:19→20:18)
[2020-08-28] MEDS: Fluticasone Propionate Nasal 50 MCG/SPRAY BOTTLE NS SCH ×2 (08:19→20:18)
[2020-08-28] MEDS: Nystatin SUSP 5 ML UD.LIQ PO SCH ×4 (08:19→20:18)
[2020-08-28] MEDS: Artificial Tears SOLN 15 ML BOTTLE BOTH EYES SCH (20:19)
[2020-08-28] MEDS: Menthol 9.1 MG LOZENGE PO PRN (20:21)
[2020-08-28] MEDS: Benzonatate 100 MG CAPSULE PO PRN (22:53)
[2020-08-29] MEDS: Ipratropium/Albuterol Neb 3 ML IH SCH ×4 (04:28→20:26)
[2020-08-29] MEDS: *HR* Enoxaparin 40 MG/0.4 ML SYRINGE SQ SCH (06:52)
[2020-08-29] MEDS: Insulin LISPRO 300 UNITS/3 ML VIAL SQ SCH ×4 (08:09→21:03)
[2020-08-29] MEDS: Aspirin Enteric Coated 81 MG Tablet PO SCH (08:16)
[2020-08-29] MEDS: predniSONE 20 MG TABLET PO SCH (08:16)
[2020-08-29] MEDS: Fluticasone Propionate Nasal 50 MCG/SPRAY BOTTLE NS SCH ×2 (08:17→20:54)
[2020-08-29] MEDS: Cholecalciferol (D-3) 1,000 UNIT (25MCG) TABLET PO SCH (08:17)
[2020-08-29] MEDS: Lactobacillus 1 EACH CAP.SPRINK PO SCH ×2 (08:17→20:53)
[2020-08-29] MEDS: Nystatin SUSP 5 ML UD.LIQ PO SCH ×4 (08:17→20:54)
[2020-08-29] MEDS: Sennosides/Docusate Sodium TABLET PO SCH ×2 (08:17→20:53)
[2020-08-29] MEDS: GuaiFENesin/Dextromethorphan TABLET PO SCH ×2 (08:17→20:53)
[2020-08-29] MEDS: Benzonatate 100 MG CAPSULE PO PRN ×2 (16:16→20:55)
[2020-08-29] MEDS: Artificial Tears SOLN 15 ML BOTTLE BOTH EYES SCH (21:48)
[2020-08-30] MEDS: Ipratropium/Albuterol Neb 3 ML IH SCH ×2 (03:17→09:02)
[2020-08-30] MEDS: *HR* Enoxaparin 40 MG/0.4 ML SYRINGE SQ SCH (05:38)
[2020-08-30] MEDS: Insulin LISPRO 300 UNITS/3 ML VIAL SQ SCH ×2 (08:17→12:20)
[2020-08-30] MEDS: Lactobacillus 1 EACH CAP.SPRINK PO SCH (08:54)
[2020-08-30] MEDS: Aspirin Enteric Coated 81 MG Tablet PO SCH (08:54)
[2020-08-30] MEDS: Cholecalciferol (D-3) 1,000 UNIT (25MCG) TABLET PO SCH (08:54)
[2020-08-30] MEDS: Sennosides/Docusate Sodium TABLET PO SCH (08:54)
[2020-08-30] MEDS: Fluticasone Propionate Nasal 50 MCG/SPRAY BOTTLE NS SCH (08:54)
[2020-08-30] MEDS: GuaiFENesin/Dextromethorphan TABLET PO SCH (08:54)
[2020-08-30] MEDS: Nystatin SUSP 5 ML UD.LIQ PO SCH ×2 (08:54→12:22)
[2020-08-30] MEDS: predniSONE 20 MG TABLET PO SCH (08:55)
[2020-08-30 09:34] VITALS: BP 128/69
== END 2020-08-30 15:45 | disposition home health service (06) | DRG 193 ==
LOC: INPGRE 15:11
PROVIDERS: ADMIT Family Medicine; ATTEND Family Medicine